=== PATIENT | female | born 1945 | race Caucasian/White ===

== ENCOUNTER 2016-03-16 10:39 | Outpatient (CLI) | END 2016-03-16 10:40 | disposition home or self-care (01) | LOC: AMBL 10:39 | PROVIDERS: ATTEND Emergency Medicine | DX: R50.9 Fever, unspecified (principal); R10.30 Lower abdominal pain, unspecified; R00.0 Tachycardia, unspecified; R06.00 Dyspnea, unspecified; R19.03 Right lower quadrant abdominal swelling, mass and lump; R40.2421 Glasgow coma scale score 9-12, in the field [EMT or ambulance]; M62.422 Contracture of muscle, left upper arm; R73.09 Other abnormal glucose; Z86.14 Personal history of Methicillin resistant Staphylococcus aureus infection; Z87.440 Personal history of urinary (tract) infections; Z96.0 Presence of urogenital implants; Z93.1 Gastrostomy status ==

== ENCOUNTER 2016-03-31 13:49 | Outpatient (CLI) | END 2016-03-31 13:50 | LOC: AMBL 13:49 | PROVIDERS: ATTEND Emergency Medicine | DX: R50.9 Fever, unspecified (principal); A41.9 Sepsis, unspecified organism; N32.89 Other specified disorders of bladder; R00.0 Tachycardia, unspecified; F03.90 Unspecified dementia, unspecified severity, without behavioral disturbance, psychotic disturbance, mood disturbance, and anxiety ==

== ENCOUNTER 2016-05-08 15:25 | Outpatient (CLI) | END 2016-05-08 15:26 | disposition home or self-care (01) | LOC: LAB 15:25 | PROVIDERS: ATTEND Family Medicine | DX: R50.9 Fever, unspecified (principal); R30.0 Dysuria ==

== ENCOUNTER 2016-05-10 15:03 | Outpatient (CLI) ==
[2016-05-10 15:11] LABS: BILIRUBIN,URINE Negative (NEGATIVE); KETONES,URINE Negative (NEGATIVE); LEUKOCYTE ESTERASE ,URINE Trace (NEGATIVE); NITRITE,URINE Negative (NEGATIVE); PROTEIN,URINE 2+ (NEGATIVE); URINE, BLOOD 2+ (NEGATIVE)
[2016-05-10 15:13] LABS: ADD URINE MICROSCOPIC YES
== END 2016-05-10 15:04 | disposition home or self-care (01) ==
LOC: NONPT 15:03
PROVIDERS: ATTEND Family Medicine
DX: R50.9 Fever, unspecified (principal); R30.0 Dysuria
CPT/HCPCS: 81001

== ENCOUNTER 2016-06-25 19:24 | Outpatient (CLI) ==
[2016-06-25 19:34] LABS: BILIRUBIN,URINE Negative (NEGATIVE); KETONES,URINE Negative (NEGATIVE); LEUKOCYTE ESTERASE ,URINE 1+ (NEGATIVE); NITRITE,URINE Negative (NEGATIVE); PROTEIN,URINE 1+ (NEGATIVE); URINE, BLOOD 1+ (NEGATIVE)
[2016-06-25 19:35] LABS: ADD URINE MICROSCOPIC YES
[2016-06-25 19:36] LABS: BACTERIA,URINE 3+ (NOT PRESENT)
== END 2016-06-25 19:25 | disposition home or self-care (01) ==
LOC: NONPT 19:24
PROVIDERS: ATTEND Family Medicine
DX: R50.9 Fever, unspecified (principal)
CPT/HCPCS: 81001; 87086

== ENCOUNTER 2017-04-28 14:52 | Outpatient (CLI) | END 2017-04-28 14:53 | disposition short-term general hospital (02) | LOC: AMBL 14:52 | PROVIDERS: ATTEND Emergency Medicine | DX: R23.0 Cyanosis (principal) ==